=== PATIENT | female | born 1965 | race Two or more races ===

== ENCOUNTER 2021-12-20 07:48 | Outpatient (CLI) | payer OTHER ==
[~2021-12-20 07:48] MED LIST: AMBIEN CR12.5 MG PO; AMOX1TAB12 PO; ATIVAN1 MG PO; BUPROPION XL300 MG PO; CLONAZEPAM1 MG PO; DICLOFENAC POTA50 MG PO; DIVALPROEX SOD500 MG PO; DOCUSATE SODIU100 MG PO; GABAPENTIN800 MG PO; LAMICTAL100 M1; ORPHENADRINE C100 MG PO; PERCOCET 5-3251 EACH PO; SEROQUEL200 MG
== END 2021-12-20 08:01 | disposition home or self-care (01) ==
LOC: MAMO-SONO 07:48
PROVIDERS: ATTEND Internal Medicine
DX: D17.1 Benign lipomatous neoplasm of skin and subcutaneous tissue of trunk (principal); Z12.31 Encounter for screening mammogram for malignant neoplasm of breast; N63.0 Unspecified lump in unspecified breast

== ENCOUNTER 2022-01-13 07:29 | Outpatient (CLI) | payer OTHER ==
[~2022-01-13 07:29] MED LIST changes: +CANABIS
== END 2022-01-13 07:31 | disposition home or self-care (01) ==
LOC: SONOGRAMA 07:29
PROVIDERS: ATTEND Internal Medicine
DX: I11.9 Hypertensive heart disease without heart failure (principal); D17.9 Benign lipomatous neoplasm, unspecified; N18.32 Chronic kidney disease, stage 3b

== ENCOUNTER 2022-01-15 08:33 | Outpatient (CLI) | payer OTHER | END 2022-01-15 09:49 | disposition home or self-care (01) | LOC: LAB 08:33 | PROVIDERS: ATTEND Internal Medicine | DX: I11.9 Hypertensive heart disease without heart failure (principal); D17.9 Benign lipomatous neoplasm, unspecified; N18.32 Chronic kidney disease, stage 3b ==

== ENCOUNTER 2022-01-18 06:31 | Day surgery (SDC) | payer OTHER | END 2022-01-18 11:05 | disposition home or self-care (01) | LOC: CIR.AMB 06:31 | PROVIDERS: ATTEND Specialist | DX: D17.1 Benign lipomatous neoplasm of skin and subcutaneous tissue of trunk (principal); Z87.891 Personal history of nicotine dependence; F12.90 Cannabis use, unspecified, uncomplicated ==

== ENCOUNTER 2024-06-26 22:02 | Emergency (ER) | payer OTHER ==
[~2024-06-26] VITALS: Ht 165.1 cm; Wt 64.4 kg
[2024-06-26] MEDS ORDERED: ZOLOFT25 MG PO (22:11)
[2024-06-26] MEDS ORDERED: COZAAR25 MG PO (22:11)
[2024-06-26] MEDS ORDERED: hydrALAZINE HCL 20 MG VIAL IV ONE ×2 (23:00→23:30)
[2024-06-26] MEDS ORDERED: ONDANSETRON HCL 2 MG/ML VIAL IV ONE (23:00)
[2024-06-26] MEDS ORDERED: hydrALAZINE HCL 20 MG VIAL ONE (23:12)
[2024-06-26] MEDS ORDERED: ONDANSETRON HCL 2 MG/ML VIAL ONE (23:12)
[2024-06-26] MEDS ORDERED: LORazepam 2 MG/ML VIAL IV ONE (23:45)
[2024-06-26] MEDS ORDERED: LORazepam 2 MG/ML VIAL ONE (23:59)
[2024-06-27 00:05] LABS: HEMOGLOBIN 14.6 g/dL (12.0-15.00); MEAN CORPUSCULAR HEMOGLOBIN 31.3 pg (27.00-32.0); MEAN CORPUSCULAR HGB CONC 35.6 g/dl (32.0-36.0); PLATELET COUNT 295 K/uL (150-450); RED BLOOD COUNT 4.66 M/uL (4.00-6.00); RED CELL DISTRIBUTION WIDTH 13.7 % (11.5-14.5)
[2024-06-27 00:11] LABS: ALBUMIN 4.6 gm/dL (3.4-5.0); BILIRUBIN TOTAL 0.64 mg/dL (0.3-1.2); CREATININE SERUM 1.08 mg/dL (0.55-1.02); GFR 51.75; GLOBULINA 3.4 G/DL (2.4-3.5); POTASSIUM 3.87 mEq/L (3.5-5.1)
[2024-06-27 08:02] VITALS: BP 107/69; O2SAT 99
== END 2024-06-27 09:57 | disposition home or self-care (01) ==
LOC: ER 22:03
PROVIDERS: General Practice
DX: I10 Essential (primary) hypertension (principal); N17.9 Acute kidney failure, unspecified; F41.9 Anxiety disorder, unspecified; F41.0 Panic disorder [episodic paroxysmal anxiety]; Z91.040 Latex allergy status

== ENCOUNTER 2025-06-03 13:00 | Outpatient (CLI) | payer OTHER ==
[~2025-06-03 13:00] MED LIST changes: +COZAAR25 MG PO; +ZOLOFT25 MG PO
== END 2025-06-03 13:07 | disposition home or self-care (01) ==
LOC: SONOGRAMA 13:00
PROVIDERS: ATTEND Internal Medicine
DX: N18.32 Chronic kidney disease, stage 3b (principal)